=== PATIENT | female | born 1990 | race Caucasian/White ===

== ENCOUNTER 2019-04-23 12:57 | Inpatient (IN) | payer OTHER ==
[2019-04-23] MEDS: ONDANSETRON 4 MG INJ IV (14:39)
[2019-04-23] MEDS: SOD CHLORIDE 0.9% 1,000 ML IV ×2 (14:39→15:53)
[2019-04-23 14:40] LABS: ADD MAN DIFF? NO
[2019-04-23 14:44] LABS: BASOPHILS % 0.2 % (0.0-2.0); EOSINOPHILS % 0.1 % (0.0-7.0); HEMATOCRIT 43.2 % (37.0-47.0); HEMOGLOBIN 14.3 g/dl (12.0-16.0); LYMPHOCYTES # 1.8 10^3/ul (0.8-2.9); LYMPHOCYTES % 12.4 % (15.0-51.0); MEAN CORPUSCULAR HEMOGLOBIN 29.7 pg (29.0-33.0); MEAN CORPUSCULAR HGB CONC 33.1 g/dl (32.0-37.0); MEAN CORPUSCULAR VOLUME 89.6 fl (82.0-101.0); MEAN PLATELET VOLUME 10.1 fl (7.4-10.4); MONOCYTE # 0.7 10^3/ul (0.3-0.9); MONOCYTES % 5.1 % (0.0-11.0); NEUTROPHIL # 11.7 10^3/ul (1.6-7.5); NEUTROPHILS % 81.6 % (39.0-77.0); PLATELET COUNT 326 10^3/UL (140-415); RED BLOOD COUNT 4.82 10^6/ul (4.20-5.40); RED CELL DISTRIBUTION WIDTH 12.1 % (11.5-14.5)
[2019-04-23 14:44] LABS: WHITE BLOOD COUNT 14.3 10^3/ul (4.8-10.8)
[2019-04-23 15:06] LABS: ALANINE AMINOTRANSFERASE 29 IU/L (13-69); ALBUMIN 4.6 g/dl (3.3-4.9); ALKALINE PHOSPHATASE 73 IU/L (42-121); ANION GAP 11 (5-13); ASPARTATE AMINO TRANSFERASE 26 IU/L (15-46); BILIRUBIN,INDIRECT 0.6 mg/dl (0-1.1); BILIRUBIN,TOTAL 0.6 mg/dl (0.2-1.3); BLOOD UREA NITROGEN 10 mg/dl (7-20); CALCIUM 9.6 mg/dl (8.4-10.2); CARBON DIOXIDE 26 mmol/L (21-31); CHLORIDE 101 mmol/L (97-110); CREATININE 0.48 mg/dl (0.44-1.00); Estimated GFR > 60 mL/min (>60); GLUCOSE 109 mg/dl (70-220); POTASSIUM 3.6 mmol/L (3.5-5.1); SODIUM 138 mmol/L (135-144); TOTAL PROTEIN 8.5 g/dl (6.1-8.1)
[2019-04-23 15:07] LABS: ALBUMIN/GLOBULIN RATIO 1.17
[2019-04-23 15:23] LABS: ADD UMIC YES; UR ASCORBIC ACID NEGATIVE (NEGATIVE); UR BACTERIA FEW /HPF (NONE SEEN); UR BILIRUBIN (Dip) 1+ mg/dL (NEGATIVE); UR BLOOD (Dip) NEGATIVE (NEGATIVE); UR CLARITY SLIGHTLY CLOUDY (CLEAR); UR COLOR AMBER (YELLOW); UR GLUCOSE (Dip) NEGATIVE (NEGATIVE); UR KETONES (Dip) 2+ mg/dL (NEGATIVE); UR LEUKOCYTE ESTERASE (Dip) TRACE Leu/ul (NEGATIVE); UR MUCUS MANY /HPF (NONE SEEN); UR NITRITE (Dip) NEGATIVE (NEGATIVE); UR RBC 7 /HPF (0-5); UR SPECIFIC GRAVITY (Dip) 1.031 (1.003-1.030); UR SQUAMOUS EPITHELIAL CELL FEW /HPF (FEW); UR TOTAL PROTEIN (Dip) 1+ mg/dl (NEGATIVE); UR UROBILINOGEN (Dip) 2+ mg/dL (NEGATIVE); UR WBC 3 /HPF (0-5)
[2019-04-23] MEDS ORDERED: hydrALAzine 20 MG INJ IV (15:30)
[2019-04-23] MEDS ORDERED: HYDROCODONE/APAP (5/325) TAB PO (15:30)
[2019-04-23] MEDS ORDERED: ONDANSETRON 4 MG INJ IV ×2 (15:30→21:30)
[2019-04-23] MEDS ORDERED: DOCUSATE SODIUM 100 MG CAP PO (15:30)
[2019-04-23] MEDS ORDERED: NACL 0.9% 3 ML SYG IV (15:30)
[2019-04-23] MEDS ORDERED: LORAZEPAM 2 MG INJ IV (15:30)
[2019-04-23] MEDS ORDERED: MAGNESIUM HYDROXIDE 30ML CUP PO (15:30)
[2019-04-23] MEDS ORDERED: NITROGLYCERIN (SL) 0.4 MG TAB SL (15:30)
[2019-04-23] MEDS ORDERED: ALBUTEROL/IPRATROPIUM (NEB) 3 ML AMP HHN (15:30)
[2019-04-23] MEDS: ONDANSETRON INJ 8 MG in SOD CHLORIDE 0.9% 50 ML IV ×2 (18:14→23:42)
[2019-04-23] MEDS: ACETAMINOPHEN 325 MG TAB PO (21:15)
[2019-04-24] MEDS: DIPHENHYDRAMINE 50 MG CAP PO ×3 (02:18→22:20)
[2019-04-24] MEDS: SOD CHLORIDE 0.9% 1,000 ML IV ×3 (02:18→21:30)
[2019-04-24] MEDS: DIPHENHYDRAMINE 50 MG INJ IV (03:12)
[2019-04-24] MEDS: ONDANSETRON INJ 8 MG in SOD CHLORIDE 0.9% 50 ML IV ×4 (06:05→23:43)
[2019-04-24 07:10] LABS: ADD MAN DIFF? NO
[2019-04-24 07:16] LABS: BASOPHILS % 0.2 % (0.0-2.0); EOSINOPHILS % 0.2 % (0.0-7.0); HEMOGLOBIN 12.1 g/dl (12.0-16.0); LYMPHOCYTES # 1.6 10^3/ul (0.8-2.9); LYMPHOCYTES % 15.9 % (15.0-51.0); MEAN CORPUSCULAR HEMOGLOBIN 30.3 pg (29.0-33.0); MEAN CORPUSCULAR HGB CONC 33.6 g/dl (32.0-37.0); MEAN CORPUSCULAR VOLUME 90.2 fl (82.0-101.0); MEAN PLATELET VOLUME 10.2 fl (7.4-10.4); MONOCYTE # 0.6 10^3/ul (0.3-0.9); MONOCYTES % 6.3 % (0.0-11.0); NEUTROPHIL # 7.9 10^3/ul (1.6-7.5); NEUTROPHILS % 77.1 % (39.0-77.0); PLATELET COUNT 253 10^3/UL (140-415); RED BLOOD COUNT 3.99 10^6/ul (4.20-5.40); RED CELL DISTRIBUTION WIDTH 12.2 % (11.5-14.5)
[2019-04-24 07:16] LABS: WHITE BLOOD COUNT 10.2 10^3/ul (4.8-10.8)
[2019-04-24 07:29] LABS: HEMOGLOBIN A1C 4.9 % (0-5.9)
[2019-04-24 07:38] LABS: CHOLESTEROL 126 mg/dl (100-200)
[2019-04-24 07:38] LABS: CHOL/HDL RATIO 2.5 RATIO; HDL CHOLESTEROL 50 mg/dl (34-82); LDL CHOLESTEROL,CALCULATED 60 mg/dl; TRIGLYCERIDES 78 mg/dl (0-149)
[2019-04-24 07:41] LABS: ANION GAP 8 (5-13); BLOOD UREA NITROGEN 9 mg/dl (7-20); CALCIUM 8.9 mg/dl (8.4-10.2); CARBON DIOXIDE 24 mmol/L (21-31); CHLORIDE 105 mmol/L (97-110); CREATININE 0.49 mg/dl (0.44-1.00); Estimated GFR > 60 mL/min (>60); GLUCOSE 97 mg/dl (70-220); MAGNESIUM 1.8 mg/dl (1.7-2.5); PHOSPHORUS 4.1 mg/dl (2.5-4.9); POTASSIUM 3.8 mmol/L (3.5-5.1); SODIUM 137 mmol/L (135-144)
[2019-04-24 08:09] LABS: THYROID STIMULATING HORMONE 0.212 MIU/L (0.465-4.680)
[2019-04-24] MEDS: PYRIDOXINE 50 MG TAB PO (08:53)
[2019-04-24] MEDS ORDERED: DIPHENHYDRAMINE 50 MG CAP PO (14:30)
[2019-04-24] MEDS ORDERED: DIPHENHYDRAMINE 50 MG INJ IV (14:30)
[2019-04-24] MEDS: ACETAMINOPHEN 325 MG TAB PO (18:29)
[2019-04-24] MEDS: TRIMETHOBENZAMIDE 100 MG/ML VIAL IM (21:27)
[2019-04-25] MEDS: SOD CHLORIDE 0.9% 1,000 ML IV ×2 (01:43→12:46)
[2019-04-25] MEDS: DIPHENHYDRAMINE 50 MG CAP PO ×4 (03:16→20:30)
[2019-04-25 05:30] LABS: ADD MAN DIFF? NO
[2019-04-25 05:34] LABS: BASOPHILS % 0.2 % (0.0-2.0); EOSINOPHILS % 0.1 % (0.0-7.0); HEMATOCRIT 36.1 % (37.0-47.0); HEMOGLOBIN 12.3 g/dl (12.0-16.0); LYMPHOCYTES # 1.6 10^3/ul (0.8-2.9); LYMPHOCYTES % 13.3 % (15.0-51.0); MEAN CORPUSCULAR HEMOGLOBIN 30.4 pg (29.0-33.0); MEAN CORPUSCULAR HGB CONC 34.1 g/dl (32.0-37.0); MEAN CORPUSCULAR VOLUME 89.1 fl (82.0-101.0); MONOCYTE # 0.7 10^3/ul (0.3-0.9); NEUTROPHIL # 9.6 10^3/ul (1.6-7.5); NEUTROPHILS % 80.1 % (39.0-77.0); PLATELET COUNT 265 10^3/UL (140-415); RED BLOOD COUNT 4.05 10^6/ul (4.20-5.40)
[2019-04-25] MEDS: ONDANSETRON INJ 8 MG in SOD CHLORIDE 0.9% 50 ML IV (05:48)
[2019-04-25 05:56] LABS: ANION GAP 9 (5-13); BLOOD UREA NITROGEN 6 mg/dl (7-20); CARBON DIOXIDE 26 mmol/L (21-31); CHLORIDE 101 mmol/L (97-110); CREATININE 0.48 mg/dl (0.44-1.00); Estimated GFR > 60 mL/min (>60); GLUCOSE 104 mg/dl (70-220); POTASSIUM 3.8 mmol/L (3.5-5.1); SODIUM 136 mmol/L (135-144)
[2019-04-25] MEDS: TRIMETHOBENZAMIDE 100 MG/ML VIAL IM ×2 (08:28→17:24)
[2019-04-25] MEDS: PYRIDOXINE 50 MG TAB PO (08:29)
[2019-04-25 11:36] LABS: ADD MAN DIFF? NO
[2019-04-25] MEDS: ONDANSETRON 4 MG INJ IV ×3 (11:44→20:06)
[2019-04-25 11:47] LABS: WHITE BLOOD COUNT 9.8 10^3/ul (4.8-10.8)
[2019-04-25 11:47] LABS: BASOPHILS % 0.3 % (0.0-2.0); EOSINOPHILS % 0.1 % (0.0-7.0); HEMATOCRIT 36.8 % (37.0-47.0); HEMOGLOBIN 12.4 g/dl (12.0-16.0); LYMPHOCYTES # 1.5 10^3/ul (0.8-2.9); LYMPHOCYTES % 15.2 % (15.0-51.0); MEAN CORPUSCULAR HEMOGLOBIN 29.7 pg (29.0-33.0); MEAN CORPUSCULAR HGB CONC 33.7 g/dl (32.0-37.0); MONOCYTE # 0.6 10^3/ul (0.3-0.9); MONOCYTES % 6.3 % (0.0-11.0); NEUTROPHIL # 7.6 10^3/ul (1.6-7.5); NEUTROPHILS % 77.7 % (39.0-77.0); PLATELET COUNT 270 10^3/UL (140-415); RED BLOOD COUNT 4.18 10^6/ul (4.20-5.40); RED CELL DISTRIBUTION WIDTH 12.3 % (11.5-14.5)
[2019-04-25 12:03] LABS: ALANINE AMINOTRANSFERASE 30 IU/L (13-69); ALBUMIN 3.6 g/dl (3.3-4.9); ALBUMIN/GLOBULIN RATIO 1.12; ALKALINE PHOSPHATASE 67 IU/L (42-121); ANION GAP 8 (5-13); ASPARTATE AMINO TRANSFERASE 19 IU/L (15-46); BILIRUBIN,INDIRECT 0.5 mg/dl (0-1.1); BILIRUBIN,TOTAL 0.5 mg/dl (0.2-1.3); BLOOD UREA NITROGEN 5 mg/dl (7-20); CALCIUM 8.7 mg/dl (8.4-10.2); CARBON DIOXIDE 26 mmol/L (21-31); CHLORIDE 102 mmol/L (97-110); CREATININE 0.43 mg/dl (0.44-1.00); Estimated GFR > 60 mL/min (>60); GLUCOSE 97 mg/dl (70-220); POTASSIUM 3.6 mmol/L (3.5-5.1); SODIUM 136 mmol/L (135-144); TOTAL PROTEIN 6.8 g/dl (6.1-8.1)
[2019-04-25] MEDS: DIPHENHYDRAMINE 50 MG INJ IV (22:36)
[2019-04-26] MEDS: SOD CHLORIDE 0.9% 1,000 ML IV ×3 (00:48→11:56)
[2019-04-26] MEDS: ONDANSETRON 4 MG INJ IV ×7 (00:48→23:46)
[2019-04-26] MEDS: DIPHENHYDRAMINE 50 MG CAP PO ×4 (02:30→21:51)
[2019-04-26] MEDS: CEPASTAT LOZENGE MT ×2 (03:40→06:26)
[2019-04-26] MEDS: TRIMETHOBENZAMIDE 100 MG/ML VIAL IM ×2 (04:34→17:44)
[2019-04-26] MEDS: DIPHENHYDRAMINE 50 MG INJ IV (06:26)
[2019-04-26 07:06] LABS: ADD MAN DIFF? NO
[2019-04-26 07:14] LABS: WHITE BLOOD COUNT 10.2 10^3/ul (4.8-10.8)
[2019-04-26 07:14] LABS: BASOPHILS % 0.2 % (0.0-2.0); HEMATOCRIT 37.6 % (37.0-47.0); HEMOGLOBIN 12.7 g/dl (12.0-16.0); LYMPHOCYTES # 1.6 10^3/ul (0.8-2.9); LYMPHOCYTES % 15.5 % (15.0-51.0); MEAN CORPUSCULAR HEMOGLOBIN 29.9 pg (29.0-33.0); MEAN CORPUSCULAR HGB CONC 33.8 g/dl (32.0-37.0); MEAN CORPUSCULAR VOLUME 88.5 fl (82.0-101.0); MEAN PLATELET VOLUME 10.4 fl (7.4-10.4); MONOCYTE # 0.7 10^3/ul (0.3-0.9); MONOCYTES % 6.6 % (0.0-11.0); NEUTROPHIL # 7.9 10^3/ul (1.6-7.5); NEUTROPHILS % 77.2 % (39.0-77.0); PLATELET COUNT 281 10^3/UL (140-415); RED BLOOD COUNT 4.25 10^6/ul (4.20-5.40); RED CELL DISTRIBUTION WIDTH 12.3 % (11.5-14.5)
[2019-04-26 07:29] LABS: MAGNESIUM 1.7 mg/dl (1.7-2.5)
[2019-04-26 07:29] LABS: PHOSPHORUS 4.1 mg/dl (2.5-4.9)
[2019-04-26 07:35] LABS: ANION GAP 10 (5-13); BLOOD UREA NITROGEN 6 mg/dl (7-20); CARBON DIOXIDE 25 mmol/L (21-31); CHLORIDE 101 mmol/L (97-110); CREATININE 0.47 mg/dl (0.44-1.00); Estimated GFR > 60 mL/min (>60); GLUCOSE 102 mg/dl (70-220); POTASSIUM 3.6 mmol/L (3.5-5.1); SODIUM 136 mmol/L (135-144)
[2019-04-26] MEDS: PYRIDOXINE 50 MG TAB PO (09:15)
[2019-04-26] MEDS: NITROFURANTOIN (SR) 100 MG CAP PO ×2 (15:24→21:51)
[2019-04-26] MEDS: FAMOTIDINE 20 MG TAB PO ×2 (15:24→21:51)
[2019-04-26] MEDS: POLYETHYLENE GLYCOL 17 GM PACKET PO (21:51)
[2019-04-27] MEDS: TRIMETHOBENZAMIDE 100 MG/ML VIAL IM (00:55)
[2019-04-27] MEDS: DIPHENHYDRAMINE 50 MG CAP PO ×2 (02:21→08:30)
[2019-04-27] MEDS: ONDANSETRON 4 MG INJ IV ×3 (03:00→11:00)
[2019-04-27 05:28] LABS: ADD MAN DIFF? NO
[2019-04-27 05:36] LABS: BASOPHILS % 0.4 % (0.0-2.0); EOSINOPHILS % 0.3 % (0.0-7.0); HEMATOCRIT 36.3 % (37.0-47.0); HEMOGLOBIN 12.5 g/dl (12.0-16.0); LYMPHOCYTES # 2.2 10^3/ul (0.8-2.9); LYMPHOCYTES % 21.8 % (15.0-51.0); MEAN CORPUSCULAR HEMOGLOBIN 30.1 pg (29.0-33.0); MEAN CORPUSCULAR HGB CONC 34.4 g/dl (32.0-37.0); MEAN CORPUSCULAR VOLUME 87.5 fl (82.0-101.0); MEAN PLATELET VOLUME 10.1 fl (7.4-10.4); MONOCYTE # 0.8 10^3/ul (0.3-0.9); PLATELET COUNT 292 10^3/UL (140-415); RED BLOOD COUNT 4.15 10^6/ul (4.20-5.40); RED CELL DISTRIBUTION WIDTH 12.1 % (11.5-14.5)
[2019-04-27 05:36] LABS: WHITE BLOOD COUNT 10.1 10^3/ul (4.8-10.8)
[2019-04-27 06:04] LABS: ANION GAP 9 (5-13); BLOOD UREA NITROGEN 5 mg/dl (7-20); CALCIUM 8.9 mg/dl (8.4-10.2); CARBON DIOXIDE 25 mmol/L (21-31); CHLORIDE 100 mmol/L (97-110); CREATININE 0.42 mg/dl (0.44-1.00); Estimated GFR > 60 mL/min (>60); GLUCOSE 93 mg/dl (70-220); POTASSIUM 3.2 mmol/L (3.5-5.1); SODIUM 134 mmol/L (135-144)
[2019-04-27] MEDS: POLYETHYLENE GLYCOL 17 GM PACKET PO ×2 (08:51→21:00)
[2019-04-27] MEDS: PYRIDOXINE 50 MG TAB PO (08:54)
[2019-04-27] MEDS: NITROFURANTOIN (SR) 100 MG CAP PO ×2 (08:54→22:37)
[2019-04-27] MEDS: FAMOTIDINE 20 MG TAB PO ×2 (08:54→22:37)
[2019-04-27] MEDS: MINERAL OIL 133 ML ENEMA PR (12:26)
[2019-04-27] MEDS ORDERED: ONDANSETRON 4 MG INJ IV (15:00)
[2019-04-27] MEDS: CEPASTAT LOZENGE MT (22:41)
[2019-04-28 05:17] LABS: ADD MAN DIFF? NO
[2019-04-28 05:18] LABS: WHITE BLOOD COUNT 10.9 10^3/ul (4.8-10.8)
[2019-04-28 05:18] LABS: BASOPHILS % 0.3 % (0.0-2.0); EOSINOPHILS # 0.1 10^3/ul (0.0-0.5); EOSINOPHILS % 0.6 % (0.0-7.0); HEMATOCRIT 40.4 % (37.0-47.0); HEMOGLOBIN 14.4 g/dl (12.0-16.0); LYMPHOCYTES # 2.4 10^3/ul (0.8-2.9); LYMPHOCYTES % 22.3 % (15.0-51.0); MEAN CORPUSCULAR HEMOGLOBIN 30.4 pg (29.0-33.0); MEAN CORPUSCULAR HGB CONC 35.6 g/dl (32.0-37.0); MEAN CORPUSCULAR VOLUME 85.2 fl (82.0-101.0); MEAN PLATELET VOLUME 10.1 fl (7.4-10.4); MONOCYTES % 9.1 % (0.0-11.0); NEUTROPHIL # 7.4 10^3/ul (1.6-7.5); NEUTROPHILS % 67.3 % (39.0-77.0); PLATELET COUNT 321 10^3/UL (140-415); RED BLOOD COUNT 4.74 10^6/ul (4.20-5.40); RED CELL DISTRIBUTION WIDTH 12.2 % (11.5-14.5)
[2019-04-28 05:59] LABS: ANION GAP 11 (5-13); BLOOD UREA NITROGEN 9 mg/dl (7-20); CALCIUM 9.2 mg/dl (8.4-10.2); CARBON DIOXIDE 26 mmol/L (21-31); CHLORIDE 97 mmol/L (97-110); CREATININE 0.43 mg/dl (0.44-1.00); Estimated GFR > 60 mL/min (>60); GLUCOSE 110 mg/dl (70-220); SODIUM 134 mmol/L (135-144)
[2019-04-28 06:02] LABS: POTASSIUM 2.9 mmol/L (3.5-5.1)
[2019-04-28] MEDS: POTASSIUM CHLORIDE (SR) 20 MEQ TAB PO ×2 (07:02→10:46)
[2019-04-28] MEDS: FAMOTIDINE 20 MG TAB PO ×2 (08:19→21:08)
[2019-04-28] MEDS: POLYETHYLENE GLYCOL 17 GM PACKET PO (08:19)
[2019-04-28] MEDS: TRIMETHOBENZAMIDE 100 MG/ML VIAL IM ×2 (08:19→16:52)
[2019-04-28] MEDS: NITROFURANTOIN (SR) 100 MG CAP PO ×2 (08:19→21:08)
[2019-04-28] MEDS: PYRIDOXINE 50 MG TAB PO (08:20)
[2019-04-28 10:21] LABS: CHENODEOXYCHOLIC ACID <0.5 umol/L (< OR = 3.1); CHOLIC ACID <0.5 umol/L (< OR = 1.8); DEOXYCHOLIC ACID <0.5 umol/L (< OR = 2.4); TOTAL BILE ACIDS <1.5 umol/L (< OR = 6.8)
[2019-04-28] MEDS ORDERED: POLYETHYLENE GLYCOL 17 GM PACKET PO (10:30)
[2019-04-28] MEDS: SUCRALFATE (100 MG/ML) 10ML CUP PO ×4 (10:46→21:08)
[2019-04-28] MEDS: DIPHENHYDRAMINE 50 MG CAP PO (13:23)
[2019-04-29 06:05] LABS: ADD MAN DIFF? NO
[2019-04-29 06:19] LABS: BASOPHILS % 0.3 % (0.0-2.0); EOSINOPHILS # 0.1 10^3/ul (0.0-0.5); EOSINOPHILS % 0.8 % (0.0-7.0); HEMATOCRIT 40.3 % (37.0-47.0); HEMOGLOBIN 14.2 g/dl (12.0-16.0); LYMPHOCYTES # 3.1 10^3/ul (0.8-2.9); MEAN CORPUSCULAR HEMOGLOBIN 30.2 pg (29.0-33.0); MEAN CORPUSCULAR HGB CONC 35.2 g/dl (32.0-37.0); MEAN CORPUSCULAR VOLUME 85.7 fl (82.0-101.0); MONOCYTE # 0.9 10^3/ul (0.3-0.9); MONOCYTES % 7.4 % (0.0-11.0); NEUTROPHIL # 7.8 10^3/ul (1.6-7.5); NEUTROPHILS % 65.1 % (39.0-77.0); PLATELET COUNT 332 10^3/UL (140-415); RED CELL DISTRIBUTION WIDTH 12.4 % (11.5-14.5)
[2019-04-29 07:14] LABS: ANION GAP 12 (5-13); BLOOD UREA NITROGEN 8 mg/dl (7-20); CALCIUM 9.6 mg/dl (8.4-10.2); CARBON DIOXIDE 27 mmol/L (21-31); CHLORIDE 97 mmol/L (97-110); CREATININE 0.45 mg/dl (0.44-1.00); Estimated GFR > 60 mL/min (>60); GLUCOSE 95 mg/dl (70-220); SODIUM 136 mmol/L (135-144)
[2019-04-29] MEDS: NITROFURANTOIN (SR) 100 MG CAP PO (08:23)
[2019-04-29] MEDS: PYRIDOXINE 50 MG TAB PO (08:24)
[2019-04-29] MEDS: FAMOTIDINE 20 MG TAB PO (08:24)
[2019-04-29] MEDS: POTASSIUM CHLORIDE (SR) 20 MEQ TAB PO (12:46)
[2019-04-29] MEDS: SUCRALFATE (100 MG/ML) 10ML CUP PO (12:46)
== END 2019-04-29 14:25 | disposition home or self-care (01) | DRG 832 ==
LOC: FTE 12:57 → PP2 15:51
DX: O21.0 Mild hyperemesis gravidarum (principal); O23.41 Unspecified infection of urinary tract in pregnancy, first trimester; O99.611 Diseases of the digestive system complicating pregnancy, first trimester; O99.281 Endocrine, nutritional and metabolic diseases complicating pregnancy, first trimester; E87.6 Hypokalemia; K59.00 Constipation, unspecified; Z98.890 Other specified postprocedural states; Z86.73 Personal history of transient ischemic attack (TIA), and cerebral infarction without residual deficits; Z3A.01 Less than 8 weeks gestation of pregnancy
CPT/HCPCS: 76705; 76801; 76817; 80048; 80053; 80061; 81001; 83036; 83735; 83789; 84100; 84439; 84443; 85025; 87086; 96361; 96374; 99285-25; G0378